=== PATIENT | male | born 1965 | race Caucasian/White ===

== ENCOUNTER 2020-10-29 10:53 | Emergency (ER) | payer OTHER, SELFPAY ==
[2020-10-29] VITALS (19 sets, daily range): BP systolic 127–168; BP diastolic 91–117; PULSE 92–126; RESP 11–18; TEMP 36.4; O2SAT 97–100
--- NOTE | ~2020-10-29 | CT_ITS ---
EXAMINATION: CT abdomen pelvis w con EXAM DATE: 10/29/2020 15:05 INDICATION: Nausea and vomiting, abdominal pain. Symptoms 10 days. TECHNIQUE: Spiral CT of the abdomen and pelvis was performed following intravenous injection of 100 m L Omnipaque 350. Axial, coronal and sagittal images of the abdomen and pelvis were reviewed. The do se-length product (DLP) for this examination was 235.77 mGy-cm. The exposure was tailored according to patient size (auto mA exposure control), and iterative reconstruction (ASIR) was used as additiona l dose reduction technique. There is no prior study for comparison. FINDINGS: The liver, spleen, adrenal glands and pancreas are unremarkable. Gallbladder is unremarkab le. No biliary obstruction. Portal and splenic veins are patent. Kidneys enhance symmetrically. T here is no hydronephrosis. The prostate is unremarkable. There is a right renal cyst measuring 1.8 cm. The bladder is unremarkable. There is no retroperitoneal or pelvic lymphadenopathy. There is mild to moderate scattered arteriosclerotic disease. The appendix is normal. The stomach and small bowel are unremarkable. There is expected amount of c olonic stool. No free intraperitoneal gas. The heart is normal in size. There are no pericardial or pleural effusions. Evidence of hyperinflation. No focal basilar airspace disease. There are no osteoblastic or osteolytic lesions identified. IMPRESSION: 1. No acute intra-abdominal findings. Reviewed, dictated and finalized at location B.
[2020-10-29 11:33] LABS: Basophils Percent Auto 0.5 % (0.2-1.2); Eosinophils Absolute Auto 0.1 K/mm3 (0-0.3); Eosinophils Percent Auto 1.5 % (0-4.4); Hematocrit 50.7 % (42.0-52.0); Hemoglobin 17.5 g/dL (14.0-18.0); Immature Granulocyte Absolute 0.01 K/mm3 (0.00-0.031); Immature Granulocyte Percent A 0.2 % (0-0.5); Lymphocytes Absolute Auto 0.72 K/mm3 (0.9-3.2); Lymphocytes Percent Auto 17.6 % (18.3-44.2); Mean Corpuscular HGB Conc 34.5 g/dl (32-36); Mean Corpuscular Hemoglobin 32.6 pg (26-34); Mean Corpuscular Volume 94.4 fl (80-100); Monocytes Absolute Auto 0.6 K/mm3 (0.1-0.6); Monocytes Percent Auto 14.5 % (2.6-8.5); Neutrophils Absolute Auto 2.7 K/mm3 (1.3-6.7); Neutrophils Percent Auto 65.7 % (45.5-73.1); Platelet Count Result 276 k/mm3 (150-375); Red Blood Count 5.37 M/mm3 (4.6-6.20); Red Cell Distribution Width 12.3 % (11.5-14.5); White Blood Count 4.1 K/mm3 (4.5-10.0)
[2020-10-29 11:44] LABS: Alanine Aminotransferase 18 U/L (4-50); Albumin Level 4.6 g/dL (3.5-5.1); Alkaline Phosphatase 62 U/L (38-126); Anion Gap 12 mmol/L (8-16); Aspartate Amino Transferase 27 U/L (17-59); Bilirubin,Total 0.5 mg/dL (0.2-1.3); Blood Urea Nitrogen 13 mg/dL (9-20); Calcium 9.9 mg/dL (8.4-10.2); Carbon Dioxide 31 mmol/L (22-30); Chloride 96 mmol/L (98-107); Estimated Glomerular Filt Rate > 60; Glucose 103 mg/dL (65-110); Lipase 43 U/L (23-300); Potassium 4.3 mmol/L (3.4-5.0); Sodium 139 mmol/L (137-145)
[2020-10-29 11:54] LABS: Add Urine Microscopic? YES; Appearance Urine Clear (Clear); Bilirubin Urine Negative (Negative); Blood Urine Negative (Negative); Color Urine Yellow (Yellow); Glucose Urine UA Negative (Negative); Ketones Urine 2+ mg/dL (Negative); Leukocyte Esterase Ur Negative LEU/UL (Negative); Mucus Urine Moderate /lpf; Nitrate Urine Negative (Negative); Protein Urine Negative (Negative); Urobilinogen Urine Negative mg/dL (<2.0); WBC Urine 0-3 /hpf
--- NOTE | 2020-10-29 14:06 | ECG_ITS ---
Measurements Intervals [place] Rate: 106 P: 80 AK: 145 QRS: 65 QRSD: 76 T: 77 QT: 344 QTc: 457 Interpretive Statements SINUS TACHYCARDIA POSSIBLE LEFT ATRIAL ENLARGEMENT CANNOT RULE OUT SEPTAL INFARCT, AGE INDETERMINATE ABNORMAL ECG Electronically Signed On 10-29-2020 14:46:27 CDT by Buck Blanco D.O.
--- NOTE | 2020-10-29 14:37 | ED.GENADULT ---
HPI - General Adult General Chief complaint: Nausea/Vomiting/Diarrhea Stated complaint: VOMITING Time Seen by Provider: 10/29/20 13:34 Source: patient Mode of arrival: ambulatory Limitations: no limitations History of Present Illness HPI narrative: Patient with history of head neck cancer presents with chief complaint of vomiting over the past 10 days. Patient states that he had multiple surgeries and he completed chemotherapy and radiation 6 weeks ago. Patient has not been taking his medications today. He states he called his Dr Dwyer at [facility] and was told to come to local ER for fluid hydration and follow up in office. Patient took his diallo medication in the ER. He states he has not taken his blood pressure medication and other meds today as he didn't want to take them on and empty stomach. Patient states that he states the fluid like food due to swallowing sensitivity from his surgeries and chemoradiation. Related Data Home Medications Medication Instructions Recorded Confirmed alprazolam 0.5 mg tablet 0.5 mg PO TID 04/24/19 amlodipine 10 mg tablet 10 mg PO DAILY 04/24/19 Allergies Allergy/AdvReac Type Severity Reaction Status Date / Time morphine Allergy Unknown unknown Verified 04/24/19 15:53 Review of Systems Review of Systems: CONSTITUTIONAL: Denies fever, chills, or sweats. EYES: Denies visual changes, redness, or discharge. ENT: Denies rhinorrhea, congestion, sore throat, or otalgia. CARDIOVASCULAR: Denies chest pain, palpitations, or edema. RESPIRATORY: Denies cough or dyspnea. GASTROINTESTINAL: Reports nausea vomiting denies abdominal pain or diarrhea. GENITOURINARY: Denies dysuria or hematuria. SKIN: Denies rash or itching. MUSCULOSKELETAL: Denies back pain, joint pain, or myalgia. NEUROLOGIC: Denies headache, numbness, dizziness, or weakness. PSYCHIATRIC: Denies anxiety or depression. [facility] Past Medical History Medical History (Updated 10/29/20 @ 17:39 by Yobani Bill PA-C) Arthritis COPD (chronic obstructive pulmonary disease) Dyslipidemia FHx: migraine headaches Family History Family History (Updated 03/02/18 @ 15:12 by DOCTOR UNKNOWN) Mother Patient's mother is , Onset Age: 73 Family history of malignant neoplasm Father Patient's father is in good health Sibling Patient's sister is in good health Other Diabetes mellitus Social History Social History (Updated 04/24/19 @ 15:56 by Mónica Beatty) Smoking status: Current every day smoker Tobacco type: cigarettes Alcohol intake: current Exam Narrative: GENERAL: Mildly unkempt and thin, and in no acute distress. HEAD: Normocephalic, atraumatic. EYES: PERRLA and EOMI. ENT: Oropharynx is erythematous with white patches to tougue secondary to chemotherapy/radiation. Airway is patent. NECK: Supple. adenopathy noted submandibular or cervical lymph nodes CHEST: Clear to auscultation. No respiratory distress. No wheezes rales or rhonchi HEART: Tachycardic rate and regular rhythm. ABDOMEN: Soft, nontender, nondistended, normal active bowel sounds. SKIN: Warm, dry, no rash. NEURO: No focal deficits. Alert and oriented x3. PSYCH: Patient has anxious affect. Course Vital Signs Vital signs: Vital Signs Temperature 97.5 F L 10/29/20 11:07 Pulse Rate 126 H 10/29/20 11:07 Respiratory Rate 18 10/29/20 11:07 Blood Pressure 145/111 H 10/29/20 11:07 Pulse Oximetry 99 10/29/20 11:07 Temperature 97.5 F L 10/29/20 11:07 Pulse Rate 99 10/29/20 18:00 Respiratory Rate 14 10/29/20 18:00 Blood Pressure 132/91 H 10/29/20 18:00 Pulse Oximetry 99 10/29/20 18:00 Medical Decision Making MDM Narrative Medical decision making narrative: Patient delivered without significant abnormality. Patient was given fluid hydration and nausea medication. Patient has not had any vomiting while in emergency department. He is encouraged p.o. fluid challenge. Patient instructed to follow-up with his prim
[2020-10-29] MEDS: ONDANSETRON INJ 4 MG/2 ML VIAL IV PUSH (14:52)
[2020-10-29] MEDS: SODIUM CHLORIDE 0.9% IV 1,000 ML 999 ML IV CONT (14:52)
[2020-10-29] MEDS: LABETALOL HCL INJ 100 MG/20 ML VIAL 20 MG IV PUSH (16:22)
== END 2020-10-29 18:00 | disposition home or self-care (01) ==
PROVIDERS: Emergency Provider Emergency Medicine; PCP Physician Assistant
DX: R11.2 Nausea with vomiting, unspecified (principal); C76.0 Malignant neoplasm of head, face and neck; M19.90 Unspecified osteoarthritis, unspecified site; J44.9 Chronic obstructive pulmonary disease, unspecified; E78.5 Hyperlipidemia, unspecified; F17.210 Nicotine dependence, cigarettes, uncomplicated; R00.0 Tachycardia, unspecified; R94.31 Abnormal electrocardiogram [ECG] [EKG]; Z92.21 Personal history of antineoplastic chemotherapy; Z92.3 Personal history of irradiation
CPT/HCPCS: 36415; 74177; 80053; 81001; 83690; 85025; 93005; 96361; 96374; 96375; 99284; J2405; J7030; Q9967